=== PATIENT | female | born 1990 | race Two or more races ===

== ENCOUNTER 2019-02-10 13:47 | Emergency (ER) | payer OTHER ==
[~2019-02-10] VITALS: Ht 157.5 cm; Wt 88.9 kg
[~2019-02-10 13:47] MED LIST: FOLIC ACID0.4 MG
[2019-02-10] MEDS ORDERED: ZOVIRAX400 M1 (14:21)
== END 2019-02-10 16:57 | disposition home or self-care (01) ==
LOC: ER 13:47
DX: M94.0 Chondrocostal junction syndrome [Tietze] (principal)

== ENCOUNTER 2021-03-13 15:57 | Emergency (ER) | payer OTHER ==
[~2021-03-13] VITALS: Ht 157.5 cm; Wt 90.7 kg
[~2021-03-13 15:57] MED LIST changes: +ZOVIRAX400 M1
[2021-03-13] MEDS ORDERED: MEDROLPACK PO (19:58)
[2021-03-13] MEDS ORDERED: NAPROXEN375 MG PO (19:58)
== END 2021-03-13 20:07 | disposition home or self-care (01) ==
LOC: ER 15:57
DX: R59.0 Localized enlarged lymph nodes (principal); M54.2 Cervicalgia